=== PATIENT | male | born 2000 | race Caucasian/White ===

== ENCOUNTER 2020-03-18 23:31 | Emergency (ER) | payer BC ==
[~2020-03-18] VITALS: Ht 172.7 cm; Wt 73.6 kg
[2020-03-18 23:55] LABS: BASO # 0.1 (0.0-0.2); BASO % 1.2 % (0.0-2.0); EOS # 0.2 (0.0-0.7); EOS % 1.9 % (0-4.0); GRAN # 4.8 (1.4-6.5); GRAN % 51.4 % (42.2-75.2); HEMATOCRIT 46.8 % (36.0-47.0); HEMOGLOBIN 15.8 g/dl (12.5-16.1); LYMPH # 3.6 (1.2-3.4); LYMPH % 37.8 % (20.0-51.0); MEAN CELL VOLUME 84 fl (80.0-95.0); MEAN CORPUSCULAR HEMOGLOBIN 29 pg (26.0-32.0); MEAN CORPUSCULAR HGB CONC 34 g/dl (33.0-37.0); MEAN PLATELET VOLUME 8.2 fl (7.4-10.4); MONO # 0.7 (0.1-0.6); MONO % 7.4 % (1.7-9.3); PLATELET COUNT 255 K/mm3 (130-400); RED BLOOD COUNT 5.55 M/mm3 (4.20-5.60); REDCELL DISTRIBUTION WIDTH-CV 12.1 % (11.5-14.5)
[2020-03-19 00:16] LABS: ALANINE AMINOTRANSFERASE 15 U/L (4-49); ALKALINE PHOSPHATASE 89 U/L (50-136); ANION GAP 13 mmol/L (7-16); AST,SGOT 28 U/L (15-37); BILIRUBIN,TOTAL 0.7 mg/dL (0.0-1.0); BLOOD UREA NITROGEN 14 mg/dL (9-20); C-REACTIVE PROTEIN < 0.5 mg/dL (0.0-0.9); CALCIUM 9.8 mg/dL (8.4-10.2); CARBON DIOXIDE 27 mmol/L (22-30); CHLORIDE 102 mmol/L (98-107); CREATINE KINASE 140 U/L (55-170); CREATININE, serum 0.87 (0.66-1.25); GLUCOSE 96 mg/dL (74-106); LIPASE 128 U/L (23-300); POTASSIUM 3.5 mmol/L (3.4-5.0); SODIUM 141 mmol/L (137-145); TOTAL PROTEIN 8.4 gm/dL (6.4-8.2)
[2020-03-19 00:23] LABS: ERYTHROCYTE SEDIMENTATION RATE 1 mm/hr (0-15)
[2020-03-19 00:25] LABS: TROPONIN-I < 0.012 ng/mL (0.000-0.035)
[2020-03-19 02:50] VITALS: BP 129/76; PULSE 72; TEMP 97.6
== END 2020-03-19 02:51 | disposition home or self-care (01) ==
LOC: COL.ER 23:31
PROVIDERS: Emergency Medicine
DX: R07.89 Other chest pain (principal); R53.81 Other malaise
CPT/HCPCS: J1885; J7030